=== PATIENT | male | born 1980 | race Caucasian/White ===

== ENCOUNTER 2017-08-24 08:50 | Emergency (ER) | payer SELFPAY ==
[2017-08-24] MEDS ORDERED: Albuterol/Ipratropium 3.0-0.5 MG/3 ML Neb Soln NEB ONE (09:28)
--- NOTE | 2017-08-24 09:36 | PCM.SN ---
- Free Text/Narrative Note: This is Dr. Wilson dictating an addendum note as a supervising physician on this case. I agree with history and physical as above my personal evaluation the patient has some coarse breath sounds bilaterally with very fine expiratory wheezing but no worker breathing or sensory muscle use. He does have a sinus quality/nasal quality to his voice and tenderness with palpation of the sinuses. He currently denies any GI complaints. We will proceed to give him a nebulizer treatment and reevaluate his breath sounds and plan on treating him with antibiotics for sinusitis/bronchitis.
--- NOTE | 2017-08-24 09:57 | EDM.PDOC ---
<Rob Gallegos Z - Last Filed: 08/24/17 10:35> ED HPI GENERAL MEDICAL PROBLEM - General Chief Complaint: Gastrointestinal Problem Stated Complaint: vomiting/congestion Time Seen by Provider: 08/24/17 09:10 Source of Information: Reports: Patient History Limitations: Reports: No Limitations - History of Present Illness INITIAL COMMENTS - FREE TEXT/NARRATIVE: HISTORY AND PHYSICAL: History of present illness: 36-year-old male presenting with a one-week history of URI symptoms. Patient states that about 1 week ago he developed nasal congestion, cough that consisted of white sputum production, generalized myalgia type symptoms. Patient at that point in time started to take increased fluids, Mucinex for nasal congestion, and NyQuil. Patient states that his symptoms improved for a few days, however they came back a couple of days later again consisting of generalized myalgia, nasal congestion, headaches, cough, one episode of elevated fever of 101, nausea, with 2 episodes of vomiting, couple episodes of watery diarrhea. Patient is half pack-a-day smoker for the past 16 years. Patient does not have any significant past medical history aside from a history of recurring sinusitis infections, patient is not on any medications. Patient has not had the flu vaccine this year as of yet. 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 Review of systems: As per history of present illness and below otherwise all systems reviewed and negative. Past medical history: As per history of present illness and as reviewed below otherwise noncontributory. Surgical history: As per history of present illness and as reviewed below otherwise noncontributory. Social history: No reported history of drug or alcohol abuse. Family history: As per history of present illness and as reviewed below otherwise noncontributory. Physical exam: HEENT: Atraumatic, normocephalic, pupils reactive, negative for conjunctival pallor or scleral icterus, mucous membranes slightly dry, bilateral frontal sinuses painful on palpation, throat clear, neck supple, nontender, trachea midline. Lungs: Bilateral end expiratory wheezing, breath sounds equal bilaterally, chest nontender. Heart: S1S2, regular, negative for clicks, rubs, or JVD. Abdomen: Soft, nondistended. Negative for masses or hepatosplenomegaly. Negative for costovertebral tenderness. Pelvis: Stable nontender. Genitourinary: Deferred. Rectal: Deferred. Extremities: Atraumatic, negative for cords or calf pain. Neurovascular unremarkable. Neuro: Awake, alert, oriented. Cranial nerves II through XII unremarkable. Cerebellum unremarkable. Motor and sensory unremarkable throughout. Exam nonfocal. Diagnostics: Therapeutics: DuoNeb treatment: After DuoNeb treatment patient was reassessed and had bilateral clear lung sounds Impression: 36-year-old male presenting with a one-week history of URI symptoms, myalgia, 2 episodes of nausea and vomiting, and bilateral end expiratory wheezing most likely etiology is an acute sinusitis with a bronchitis component other etiologies to consider include lower respiratory tract infection, influenza infection. Plan: Patient's presenting symptoms suggest an acute sinusitis infection as such the patient is being put on Augmentin for 10 days, as well the patient has been given a prescription for albuterol which she can take as needed for his bronchitis symptoms.Patient has been told to take over the counter claritin and flonase to help clear up his symptoms. Patient is to follow-up with Dr. Gallegos in the next 2 days in an outpatient setting. Patient shall be discharged from the ER. Definitive disposition and diagnosis as appropriate pending reevaluation and review of above. - Related Data Allergies Allergy/AdvReac Type Severity Reaction Status Date / Time No Known Allergies Allergy Verified 08/24/17 09:12 Home Meds: Home Meds Albuterol Sulfate [Ventolin Hfa] 8 gm IH Q4HR PRN #1 [email or web address] 08/24/17 [Rx] Amoxicillin/Clavulanate K [Augmentin 875 MG/125 MG] 1 tab PO Q12HR 10 Days #20 tablet 08/24/17 [Rx] Past Medical History HEENT History: Reports: Sinusitis - Infectious Disease History Infectious Disease History: Reports: Chicken Pox - Past Surgical History HEENT Surgical History: Reports: Tonsillectomy Social & Family History - Family History Family Medical History: Noncontributory - Tobacco Use Smoking Status *Q: Current Every Day Smoker Years of Tobacco use: 16 Packs/Tins Daily: 0.5 - Caffeine Use Caffeine Use: Reports: Coffee, Soda - Recreational Drug Use Recreational Drug Use: No ED ROS GENERAL - Review of Systems Review Of Systems: ROS reveals no pertinent complaints other than HPI. ED EXAM, GI/ABD - Physical Exam Exam: See Below (Please see history of present illness) Course - Vital Signs Last Recorded V/S: Last Vital Signs Temp 36.5 C 08/24/17 10:20 Pulse 80 08/24/17 10:20 Resp 18 08/24/17 10:20 BP 135/81 08/24/17 10:20 Pulse Ox 95 08/24/17 10:20 - Orders/Labs/Meds Orders: Active Orders 24 hr Category Date Time Status RT Aerosol Therapy [RC] ASDIRECTED Care 08/24/17 09:28 Active Meds: Medications Discontinued Medications Generic Name Dose Route Start Last Admin Trade Name Freq PRN Reason Stop Dose Admin Albuterol/Ipratropium 3 ml 08/24/17 09:28 08/24/17 09:35 Duoneb 3.0-0.5 Mg/3 Ml NEB 08/24/17 09:29 3 ml ONETIME ONE Administration Departure - Departure Time of Disposition: 10:15 Disposition: Home, Self-Care 01 Condition: Good Clinical Impression: Acute sinusitis, Diarrhea, Myalgia, Bronchitis - Discharge Information Prescriptions: Albuterol Sulfate [Ventolin Hfa] 8 gm IH Q4HR PRN #1 [email or web address] PRN Reason: Wheezing Amoxicillin/Clavulanate K [Augmentin 875 MG/125 MG] 1 tab PO Q12HR 10 Days #20 tablet Instructions: Viral Gastroenteritis, Adult, [id number] Referrals: PCP,Unknown [Primary Care Provider] - ([facility] medicine clinic ) Forms: ED Department Discharge Additional Instructions: The following information is given to patients seen in the emergency department who are being discharged to home. This information is to outline your options for follow-up care. We provide all patients seen in our emergency department with a follow-up referral. The need for follow-up, as well as the timing and circumstances, are variable depending upon the specifics of your emergency department visit. If you don't have a primary care physician on staff, we will provide you with a referral. We always advise you to contact your personal physician following an emergency department visit to inform them of the circumstance of the visit and for follow-up with them and/or the need for any referrals to a consulting specialist. The emergency department will also refer you to a specialist when appropriate. This referral assures that you have the opportunity for follow-up care with a specialist. All of these measure are taken in an effort to provide you with optimal care, which includes your follow-up. Under all circumstances we always encourage you to contact your private physician who remains a resource for coordinating your care. When calling for follow-up care, please make the office aware that this follow-up is from your recent emergency room visit. If for any reason you are refused follow-up, please contact the [facility] Emergency Department at and asked to speak to the emergency department charge nurse. Diagnoses: Acute sinusitis with mild bronchitis Impressions: Based on your presenting symptoms of nasal congestion, cough, frontal sinus pain, headaches, watery diarrhea, and wheezing. U have an acute sinusitis infection likely viral in nature with a mild bronchitis. We are going to be placing you on an antibiotic Augmentin for 10 days as well as an inhaler albuterol that she can take as needed every 4 hours for your wheezing. To help clear up your upper respiratory infection please take [id number] allergy medication such as Claritin, Rosmery, or Zyrtec, as well as ecgi-bwh-[id number] Flonase along with lots of fluids to help clear up the congestion. He can also take warm showers as a steam also help clear up her congestion, you can also use pillows to help elevate your upper body to help with the drainage. Please follow up with Dr. Gallegos [facility] in an outpatient setting in 1-2 days. If you have any worsening symptoms please come back to the ER or see her primary care physician. - My Orders Last 24 Hours: My Active Orders 08/24/17 09:28 RT Aerosol Therapy [RC] ASDIRECTED - Assessment/Plan Last 24 Hours: My Active Orders 08/24/17 09:28 RT Aerosol Therapy [RC] ASDIRECTED <Kathy Wilson - Last Filed: 08/24/17 13:22> Departure - Departure Condition: Good
[2017-08-24 10:26] VITALS: BP 135/81
== END 2017-08-24 10:23 | disposition home or self-care (01) ==
LOC: MW.ED 08:50
DX: J01.90 Acute sinusitis, unspecified (principal); F17.210 Nicotine dependence, cigarettes, uncomplicated; R19.7 Diarrhea, unspecified; M79.1 Myalgia; J40 Bronchitis, not specified as acute or chronic; Z98.890 Other specified postprocedural states
CPT/HCPCS: 94640; 99282; 99283-25

== ENCOUNTER 2019-02-22 14:02 | Emergency (ER) | payer SELFPAY ==
[2019-02-22] MEDS ORDERED: Proparacaine 0.5% Ophth Soln 15 ML Bottle EYEBOTH STA (14:08)
--- NOTE | 2019-02-22 14:08 | EDM.PDOC ---
ED HPI GENERAL MEDICAL PROBLEM - General Chief Complaint: Eye Problems Stated Complaint: RT EYE IS SUPER RED AND PAINPUL Time Seen by Provider: 02/22/19 14:03 Source of Information: Reports: Patient History Limitations: Reports: No Limitations - History of Present Illness INITIAL COMMENTS - FREE TEXT/NARRATIVE: HISTORY AND PHYSICAL: History of present illness: Patient is a 38-year-old male who presents to the emergency room with complaints of right eye redness and irritation. He states he woke up this morning with moderate amount of sticky drainage from the eye. As the day has progressed he says it's more irritated and red. Does wear contact lenses, but does not have the lens in the right eye. Denies any recent exposures, chemical exposure or injury of the eye. Patient denies any fever, chills, headache, change in vision, syncope or near syncope. Denies any chest pain, back pain, shortness of breath or cough. Denies any abdominal pain, nausea, vomiting, diarrhea, constipation or dysuria. Has not noted any blood in urine or stool. Patient has been eating and drinking appropriately. Review of systems: As per history of present illness and below otherwise all systems reviewed and negative. Past medical history: As per history of present illness and as reviewed below otherwise noncontributory. Surgical history: As per history of present illness and as reviewed below otherwise noncontributory. Social history: See social history for further information Family history: As per history of present illness and as reviewed below otherwise noncontributory. Physical exam: General: Well-developed and well-nourished 38 showed male. Alert and oriented. Nontoxic appearing and in no acute distress. HEENT: Atraumatic, normocephalic, pupils equal and reactive bilaterally, negative for conjunctival pallor or scleral icterus, scleral injection of the right eye (medial moreso than lateral eye), no FB of the eye, -mucous membranes moist, TMs normal bilaterally, throat clear, neck supple, nontender, trachea midline. No drooling or trismus noted. No meningeal signs. No hot potato voice noted. Lungs: Clear to auscultation, breath sounds equal bilaterally, chest nontender. Heart: S1S2, regular rate and rhythm without overt murmur Abdomen: Soft, nondistended, nontender. Negative for masses or hepatosplenomegaly. Negative for costovertebral tenderness. Pelvis: Stable nontender. Genitourinary: Deferred. Rectal: Deferred. Skin: Intact, warm, dry. No lesions or rashes noted. Extremities: Atraumatic, moves all extremities per self with difficulty or deficits, negative for cords or calf pain. Neurovascular unremarkable. Neuro: Awake, alert, oriented. Cranial nerves II through XII unremarkable. Cerebellum unremarkable. Motor and sensory unremarkable throughout. Exam nonfocal. Notes: Visual acuity was reviewed by me. He does not have his contact lenses in. We discussed future use of his contact lenses in waiting until his eyes have cleared up, and using a new pair. He'll follow-up with the ophthalmology clinic at [place] tomorrow or return as needed. Supportive care measures were reviewed and discussed. Voices understanding and is agreeable to plan of care. Denies any further questions or concerns at this time. Diagnostics: None Therapeutics: Erythromycin ointment Prescription: Erythromycin ointment Impression: Conjunctivitis, right Plan: 1. Be sure performing good handwashing as conjunctivitis is contagious. Use the antibiotic ointment as we discussed and as directed. 2. Follow-up with ophthalmology as we discussed. Return to the ED as needed and as discussed. Definitive disposition and diagnosis as appropriate pending reevaluation and review of above. Onset: Today Right Eye Pain Score (Numeric/FACES): 7 - Related Data Allergies Allergy/AdvReac Type Severity Reaction Status Date / Time No Known Allergies Allergy Verified 02/22/19 14:15 Home Meds: Home Meds . [No Known Home Meds] 02/22/19 [History] Past Medical History HEENT History: Reports: Sinusitis - Infectious Disease History Infectious Disease History: Reports: Chicken Pox - Past Surgical History HEENT Surgical History: Reports: Tonsillectomy Social & Family History - Family History Family Medical History: Noncontributory - Caffeine Use Caffeine Use: Reports: Coffee, Soda ED ROS GENERAL - Review of Systems Review Of Systems: ROS reveals no pertinent complaints other than HPI. ED EXAM GENERAL W FULL EYE - Physical Exam Exam: See Below (See dictation) Course - Vital Signs Last Recorded V/S: Last Vital Signs Temp 97.6 F 02/22/19 14:09 Pulse 99 02/22/19 14:09 Resp 18 02/22/19 14:09 BP 133/77 02/22/19 14:09 Pulse Ox 97 02/22/19 14:09 - Orders/Labs/Meds Orders: Active Orders 24 hr Category Date Time Status Communication Order [RC] STAT Care 02/22/19 14:09 Ordered Meds: Medications Discontinued Medications Generic Name Dose Route Start Last Admin Trade Name Yesica PRN Reason Stop Dose Admin Erythromycin 1 gm 02/22/19 14:14 02/22/19 14:18 Erythromycin 0.5% Ophth Oint EYERT 02/22/19 14:15 1 ea ONETIME ONE Administration Proparacaine HCl 1 ml 02/22/19 14:08 Proparacaine 0.5% Ophth Soln EYEBOTH 02/22/19 14:09 NOW STA Departure - Departure Time of Disposition: 14:17 Disposition: Home, Self-Care 01 Clinical Impression: Conjunctivitis Qualifiers: Conjunctivitis type: acute Acute conjunctivitis type: bacterial Laterality: right Qualified Code(s): H10.31 - Unspecified acute conjunctivitis, right eye - Discharge Information Instructions: Bacterial Conjunctivitis, [id number] Referrals: PCP,Unknown [Primary Care Provider] - Forms: ED Department Discharge Additional Instructions: The following information is given to patients seen in the emergency department who are being discharged to home. This information is to outline your options for follow-up care. We provide all patients seen in our emergency department with a follow-up referral. The need for follow-up, as well as the timing and circumstances, are variable depending upon the specifics of your emergency department visit. If you don't have a primary care physician on staff, we will provide you with a referral. We always advise you to contact your personal physician following an emergency department visit to inform them of the circumstance of the visit and for follow-up with them and/or the need for any referrals to a consulting specialist. The emergency department will also refer you to a specialist when appropriate. This referral assures that you have the opportunity for follow-up care with a specialist. All of these measure are taken in an effort to provide you with optimal care, which includes your follow-up. Under all circumstances we always encourage you to contact your private physician who remains a resource for coordinating your care. When calling for follow-up care, please make the office aware that this follow-up is from your recent emergency room visit. If for any reason you are refused follow-up, please contact the [facility] Emergency Department at and asked to speak to the emergency department charge nurse. [facility] Primary [facility] [address] [place] [address] [facility]: E[facility] [address] [place] [address] 1. Be sure performing good handwashing as conjunctivitis is contagious. Use the antibiotic ointment as we discussed and as directed. 2. Please throw away old contacts. New ones once eye is clear 3. Follow-up with ophthalmology as we discussed. Return to the ED as needed and as discussed. - My Orders Last 24 Hours: My Active Orders 02/22/19 14:09 Communication Order [RC] STAT - Assessment/Plan Last 24 Hours: My Active Orders 02/22/19 14:09 Communication Order [RC] STAT
[2019-02-22] MEDS ORDERED: Erythromycin Base 0.5% Ophth Oint 1 GM Tube EYERT ONE (14:14)
[2019-02-22 14:15] VITALS: BP 133/77
== END 2019-02-22 14:28 | disposition home or self-care (01) ==
LOC: MW.ED 14:02
DX: H10.31 Unspecified acute conjunctivitis, right eye (principal)
CPT/HCPCS: 99282; A9270